=== PATIENT | female | born 1990 | race Caucasian/White ===

== ENCOUNTER → 2022-05-18 11:28 | Outpatient (BNVA) | payer OTHER, SELFPAY | PROVIDERS: Visit Provider Surgery | DX: Z13.89 Encounter for screening for other disorder (principal) ==

== ENCOUNTER → 2022-05-30 08:16 | Outpatient (BNVA) | payer OTHER, SELFPAY | PROVIDERS: Visit Provider Surgery | DX: E66.01 Morbid (severe) obesity due to excess calories (principal); M35.9 Systemic involvement of connective tissue, unspecified; I10 Essential (primary) hypertension; R00.0 Tachycardia, unspecified; G62.9 Polyneuropathy, unspecified; Z68.42 Body mass index [BMI] 45.0-49.9, adult | CPT/HCPCS: Q3014 ==

== ENCOUNTER 2022-05-31 14:14 | Outpatient (REF) | payer OTHER, SELFPAY ==
--- NOTE | 2022-05-31 14:26 | ECG_ITS ---
Test Reason : obesity Blood Pressure : / mmHG Vent. Rate : 069 BPM Atrial Rate : 069 BPM P-R Int : 174 ms QRS Dur : 096 ms QT Int : 390 ms P-R-T Axes : 039 -01 018 degrees QTc Int : 417 ms Normal sinus rhythm Normal EKG No previous ECGs available Referred By: Wellington Jacob Electronically Signed By:MIK [email or web address]
[2022-05-31 14:56] LABS: MANUAL DIFF FLAG NO
[2022-05-31 14:59] LABS: Basophils Percent Auto 0.5 % (0-2); Eosinophils Absolute Auto 0.1 X10*3/uL (0.0-0.4); Eosinophils Percent Auto 1.1 % (0-4); Hematocrit 41.3 % (37.0-47.0); Hemoglobin 13.7 g/dl (12.0-16.0); Imm Gran Abs Auto 0.06 X10*3/uL (0.00-0.03); Imm Gran Pct Auto 0.9 % (0.0-0.4); Lymphocytes Absolute Auto 1.1 X10*3/uL (1.2-4.9); Lymphocytes Percent Auto 16.9 % (20-40); Mean Corpuscular HGB Conc 33.2 g/dl (31.0-35.0); Mean Corpuscular Volume 84.5 fL (80.0-98.0); Mean Platelet Volume 9.4 fL (9.4-12.3); Monocytes Absolute Auto 0.3 X10*3/uL (0.1-1.2); Monocytes Percent Auto 4.8 % (2-11); Neutrophils Absolute Auto 4.9 x10*3/uL (2.0-8.3); Neutrophils Percent Auto 75.8 % (45-73); Platelet Count 220 X10*3/uL (160-400); Red Blood Count 4.89 X10*6/uL (4.20-5.50); Red Cell Distribution Width 13.7 % (11.0-16.0); White Blood Count 6.5 X10*3/uL (4.8-10.8)
[2022-05-31 15:25] LABS: Alanine Aminotransferase 34 U/L (0-31); Albumin Level 3.9 g/dL (3.5-5.0); Alkaline Phosphatase 57 U/L (39-117); Anion Gap 11 (12-20); Aspartate Amino Transferase 20 U/L (5-31); Bilirubin Total 0.6 mg/dL (0.0-1.0); Blood Urea Nitrogen 22 mg/dL (9-16); Carbon Dioxide 26 mmol/L (22-29); Chloride 110 mmol/L (96-108); Estimated Glomerular Filt Rate > 60; Glucose Random 86 mg/dL (60-115); Iron 105 mcg/dL (30-160); Percent Iron Saturation 31 % (15-50); Potassium 4.6 mmol/L (3.3-5.1); Sodium 142 mmol/L (135-145); Total Iron Binding Capacity 336 mcg/dL (228-428); Total Protein 6.5 g/dL (6.5-8.0); Unsaturated Iron Binding 231 ug/dL
[2022-05-31 15:49] LABS: Ferritin 35 ng/mL (10-122); Folate 4.4 ng/mL (> or = 4.0); Insulin 7 uU/mL (2-29); TSH reflex Free T4 0.38 uIU/mL (0.32-4.0); Vitamin B12 249 pg/mL (200-900)
[2022-06-02 10:47] LABS: H Pylori Breath Test Negative (Negative)
[2022-06-04 15:23] LABS: Zinc 59 mcg/dL (60-130)
[2022-06-04 15:53] LABS: PTHI 60 pg/mL (16-77)
[2022-06-05 18:23] LABS: Vitamin A 36 mcg/dL (38-98)
[2022-06-06 16:03] LABS: Vitamin B1 12 nmol/L (8-30)
== END 2022-05-31 14:15 | disposition home or self-care (01) ==
LOC: HO.XRAY 14:14
PROVIDERS: Visit Provider Surgery
DX: Z11.2 Encounter for screening for other bacterial diseases (principal); E66.01 Morbid (severe) obesity due to excess calories; I10 Essential (primary) hypertension
CPT/HCPCS: 36415; 80053; 82306; 82607; 82728; 82746; 83013; 83525; 83540; 83970; 84425; 84443; 84590; 84630; 85025; 86140; 93005; 99211

== ENCOUNTER → 2022-06-15 13:50 | Outpatient (BNVA) | payer OTHER, SELFPAY | PROVIDERS: Visit Provider Dietitian, Registered | DX: E66.01 Morbid (severe) obesity due to excess calories (principal) | CPT/HCPCS: 97802 ==

== ENCOUNTER → 2022-06-25 08:05 | Outpatient (BNVA) | payer OTHER, SELFPAY | PROVIDERS: Visit Provider Surgery | DX: E66.01 Morbid (severe) obesity due to excess calories (principal); Z68.42 Body mass index [BMI] 45.0-49.9, adult | CPT/HCPCS: Q3014 ==